=== PATIENT | male | born 1955 | race Caucasian/White ===

== ENCOUNTER 2017-09-27 09:30 | Day surgery (SDC) | payer BC ==
[~2017-09-27] VITALS: Ht 175.3 cm; Wt 84.0 kg
[~2017-09-27 09:30] MED LIST: AMIT10; Amitriptyline100 MG; CELE100 PO; CEPH500 PO; CO Q10200 MG PO; CVS GLUCOSAMIN1 EACH PO; CYAN500; CYCL10 PO; Co Q-10100 MG PO; DAILY MULTIPLE1 EACH; ESOM20 PO; EZET10 PO; FINA5; FISH OIL; FISH OIL 1,0001 EAC1 PO; GABA100; HYDACE5 PO; HYDCHL12.5; HYDR1TAB94; Hydrochloroth12.5 MG; Hydrocodone-Ap1 EA20 PO; LISI20 PO; MORP15ER; Mobic15 MG PO; Multiple Vitam1 EAC1 PO; Norco 10-325 T1 EACH PO; Norco 5-325 Ta1 EACH PO; OXYC15ER PO; OXYC5 PO; SPIHYD PO; Sm Glucosamine1 EACH PO; VITAMIN B12-FO1 EACH PO; VITAMIN D32000 UNIT; VITAMIN D32000 UNIT PO; ZIPSOR; ZOLP10 PO; Zestril40 MG
[2017-09-27] MEDS ORDERED: MORP15ER (09:55)
[2018-02-07] MEDS ORDERED: GRALISE1 EACH PO (12:13)
== END 2017-09-27 18:38 | disposition home or self-care (01) ==
LOC: ORSCSDS 09:30
PROVIDERS: Orthopaedic Surgery
PROC: 0LQ24ZZ Repair Left Shoulder Tendon, Percutaneous Endoscopic Approach (ICD-10-PCS; principal; 2017-09-27 12:00)
PROC: 01X40Z4 Transfer Ulnar Nerve to Ulnar Nerve, Open Approach (ICD-10-PCS; principal; 2017-09-27 12:00)
DX: M75.122 Complete rotator cuff tear or rupture of left shoulder, not specified as traumatic (principal); M75.52 Bursitis of left shoulder; G56.21 Lesion of ulnar nerve, right upper limb; I10 Essential (primary) hypertension; Z87.891 Personal history of nicotine dependence; Z79.899 Other long term (current) drug therapy
CPT/HCPCS: C1713; J0171; J0690; J1100; J1885; J2250; J2370; J2405; J2710; J3010

== ENCOUNTER → 2020-05-29 | Outpatient (CLI) | payer MEDICARE, BC ==
[~2020-05-29] MED LIST changes: +GRALISE1 EACH PO
[2020-05-31 17:18] LABS: CORONAVIRUS (COVID19) CSH-NRL Negative (Negative)
== END ==
LOC: LAB SHORT 15:23 → LAB 15:23
PROVIDERS: Family Medicine
DX: J40 Bronchitis, not specified as acute or chronic (principal); Z20.828 Contact with and (suspected) exposure to other viral communicable diseases
CPT/HCPCS: U0003

== ENCOUNTER 2021-08-31 12:23 | Day surgery (SDC) | payer MEDICARE, BC ==
[~2021-08-31] VITALS: Ht 175.3 cm; Wt 87.9 kg
[2021-08-31] MEDS ORDERED: METO25ER (13:14)
[2021-08-31] MEDS ORDERED: Amitriptyline H10 MG (13:16)
== END 2021-08-31 14:46 | disposition home or self-care (01) ==
LOC: ORSCSDS 12:23
PROVIDERS: Internal Medicine Gastroenterology
PROC: 0DBN8ZX Excision of Sigmoid Colon, Via Natural or Artificial Opening Endoscopic, Diagnostic (ICD-10-PCS; principal; 2021-08-31 13:45)
PROC: 0DBP8ZX Excision of Rectum, Via Natural or Artificial Opening Endoscopic, Diagnostic (ICD-10-PCS; principal; 2021-08-31 13:45)
DX: Z12.11 Encounter for screening for malignant neoplasm of colon (principal); K63.5 Polyp of colon; K63.89 Other specified diseases of intestine; K57.30 Diverticulosis of large intestine without perforation or abscess without bleeding; I10 Essential (primary) hypertension; Z86.010 Personal history of colon polyps; Z83.71 Family history of colonic polyps; Z79.899 Other long term (current) drug therapy; Z87.891 Personal history of nicotine dependence
CPT/HCPCS: 88305; J2704; J7120

== ENCOUNTER 2024-09-04 06:16 | Day surgery (SDC) | payer MEDICARE, BC ==
[~2024-09-04] VITALS: Ht 177.8 cm; Wt 73.0 kg
[2024-09-04] VITALS (12 sets, daily range): BP systolic 98–155; BP diastolic 54–78
[~2024-09-04 06:16] MED LIST changes: +ALFU10 PO; +Amitriptyline H10 MG; +CELE200 PO; +GABA300 PO; +HYDCHL25 PO; +LOSA50 PO; +METO25ER; +PRAV20 PO; +TRAM50 PO; +TRAZ50 PO; +Zofran4 MG PO
[2024-09-04] MEDS ORDERED: Verapamil HCL 2.5 MG/ML 2ML Injection ONE ×2 (06:24→07:36)
[2024-09-04] MEDS ORDERED: Heparin Sodium 1000 Units/ML 10ML MDV ONE ×4 (06:25→07:48)
[2024-09-04] MEDS ORDERED: NS 1,000 ML IV ONE ×2 (06:25→07:10)
[2024-09-04] MEDS ORDERED: Nitroglycerin 2 MG/20 ML BTL ONE ×2 (06:25→07:36)
[2024-09-04] MEDS ORDERED: NS 250 ML IV ONE (06:25)
[2024-09-04] MEDS ORDERED: OMEP20ER PO (06:51)
[2024-09-04] MEDS ORDERED: Aspirin 325 MG Tab ONE (07:09)
[2024-09-04] MEDS ORDERED: Midazolam HCl 1MG / ML 2ML Vial ONE ×2 (07:10→07:48)
[2024-09-04] MEDS ORDERED: FentaNYL Citrate 50 MCG/ML 2 ML Injection ONE ×2 (07:10→07:49)
[2024-09-04] MEDS ORDERED: NS 0 ML IV ONE ×2 (07:36)
--- NOTE | 2024-09-04 08:15 | NUR ---
PATIENT ARRIVED TO RECOVERY ROOM SITTING UPRIGHT IN RECLINER. RIGHT RADIAL TR BAND IN PLACE. SITE C/D/I SOFT/NONTENDER, NO EVIDENCE OF BLEEDING. PATIENT CONVERSING APPROPRIATELY WITH AT BEDSIDE. PATIENT DENYING ANY PAIN. VSS ON RA.
--- NOTE | 2024-09-04 08:30 | NUR ---
PATIENT AMBULATING TO RESTROOM WITHOUT DIFFIUCLTY.
--- NOTE | 2024-09-04 09:24 | NUR ---
INITIAL 2 CC OF AIR REMOVED FROM RIGHT RADIAL TR BAND. SITE C/D/I SOFT/NONTENDER, NO EVIDENCE OF BLEEDING. VSS ON RA. PATIENT TOLERATING PO INTAKE WELL.
--- NOTE | 2024-09-04 09:31 | NUR ---
NEW PRESCRIPTION CALLED
[2024-09-04] MEDS ORDERED: Aspir 8181 MG PO (09:33)
--- NOTE | 2024-09-04 09:51 | NUR ---
ALL AIR REMVOVED FROM RIGHT RADIAL TR BAND. SITE C/D/I SOFT/NONTENDER, NO EVIDENCE OF BLEEDING. VSS ON RA. DISCHARGE INSTRUCTIONS AND MEDICATION CHANGES REVIEWED WITH PATIENT AND SPOUSE AT BEDSIDE.
--- NOTE | 2024-09-04 10:35 | NUR ---
PATIENT DISCHARGED HOME AT THIS TIME. TR BAND REMOVED, CLOTH DOT AND ARMBAORD IN PLACE. DISCHARGE INSTRUCTIONS REVIEWED WITH PATIENT AND SPOUSE. PIV REMOVED WITHOUT DIFFICULTY, CATHETER INTACT. VSS ON RA. PATIENT WHEELED TO HOSPITAL ENTRANCE AND SPOUSE ABLE TO PROVIDE TRANSPORTATION HOME.
== END 2024-09-04 10:35 | disposition home or self-care (01) ==
LOC: MHTC 06:16
DX: I25.10 Atherosclerotic heart disease of native coronary artery without angina pectoris (principal); E78.5 Hyperlipidemia, unspecified; N40.0 Benign prostatic hyperplasia without lower urinary tract symptoms; I10 Essential (primary) hypertension; F17.290 Nicotine dependence, other tobacco product, uncomplicated; Z88.5 Allergy status to narcotic agent; Z88.1 Allergy status to other antibiotic agents; Z79.1 Long term (current) use of non-steroidal anti-inflammatories (NSAID); Z79.899 Other long term (current) drug therapy
CPT/HCPCS: 76937; 93458; 93571; 99152; 99153; A9270; C1769; C1887; C1894; J1644; J2250; J3010; J7030; J7050; Q9967

== ENCOUNTER 2024-10-04 08:01 | Emergency (ER) | payer MEDICARE, BC ==
[~2024-10-04] VITALS: Ht 177.8 cm; Wt 68.0 kg
[~2024-10-04 08:01] MED LIST changes: +Aspir 8181 MG PO; +OMEP20ER PO
[2024-10-04] MEDS ORDERED: Lidocaine 4% 1 Patch TOP ONE (11:05)
[2024-10-04] MEDS ORDERED: Ketorolac Tromethamine 15mg Vial IM ONE (11:05)
[2024-10-04] MEDS ORDERED: Cyclobenzaprine HCl 10 MG Tab PO ONE (11:05)
[2024-10-04] MEDS ORDERED: HYDROcodone 5-APAP 325 TAB PO ONE (14:10)
[2024-10-04 16:15] VITALS: BP 152/71
[2024-10-04] MEDS ORDERED: Diazepam 2 MG Tab PO ONE (17:15)
[2024-10-04] MEDS ORDERED: RX Prepack 6 Tabs Oxycodone 5mg UD ONE (20:20)
== END 2024-10-04 20:33 | disposition home or self-care (01) ==
LOC: ER 08:01
DX: M54.16 Radiculopathy, lumbar region (principal); I10 Essential (primary) hypertension; E78.5 Hyperlipidemia, unspecified; Z88.1 Allergy status to other antibiotic agents; Z88.5 Allergy status to narcotic agent; Z79.899 Other long term (current) drug therapy
CPT/HCPCS: 51798; 72131; 72148; 96372; 99283-25; A9270; J1885

== ENCOUNTER 2024-10-30 06:25 | Day surgery (SDC) | payer MEDICARE, BC ==
[~2024-10-30] VITALS: Ht 175.3 cm; Wt 70.8 kg
[2024-10-30] MEDS ORDERED: propofoL 50 ML IV ONE (07:37)
[2024-10-30] MEDS ORDERED: Lactated Ringer's 1,000 ML IV ONE ×2 (07:37→07:56)
[2024-10-30 09:17] VITALS: BP 142/66
== END 2024-10-30 09:20 | disposition home or self-care (01) ==
LOC: ORSCSDS 06:25
PROVIDERS: Specialist
PROC: 0DBL8ZX Excision of Transverse Colon, Via Natural or Artificial Opening Endoscopic, Diagnostic (ICD-10-PCS; principal; 2024-10-30 08:00)
PROC: 0DB78ZX Excision of Stomach, Pylorus, Via Natural or Artificial Opening Endoscopic, Diagnostic (ICD-10-PCS; principal; 2024-10-30 08:00)
PROC: 0DBP8ZX Excision of Rectum, Via Natural or Artificial Opening Endoscopic, Diagnostic (ICD-10-PCS; principal; 2024-10-30 08:00)
PROC: 0DBK8ZX Excision of Ascending Colon, Via Natural or Artificial Opening Endoscopic, Diagnostic (ICD-10-PCS; principal; 2024-10-30 08:00)
DX: R19.4 Change in bowel habit (principal); R11.2 Nausea with vomiting, unspecified; R63.4 Abnormal weight loss; K29.70 Gastritis, unspecified, without bleeding; D12.2 Benign neoplasm of ascending colon; D12.3 Benign neoplasm of transverse colon; K62.1 Rectal polyp; K64.8 Other hemorrhoids; Z79.899 Other long term (current) drug therapy; I10 Essential (primary) hypertension; E78.5 Hyperlipidemia, unspecified; F32.A Depression, unspecified
CPT/HCPCS: 88305; 88342; J2704; J7120

== ENCOUNTER 2025-03-13 04:38 | Emergency (ER) | payer MEDICARE, BC ==
[~2025-03-13] VITALS: Ht 177.8 cm; Wt 68.0 kg
[2025-03-13 05:23] VITALS: BP 158/90
[2025-03-13 05:46] LABS: Source, Urine Clean Catch
[2025-03-13 05:50] LABS: Bilirubin, Urine Neg (Neg); Color, Urine Red (P-Yellow); Glucose Qualitative, Urine Neg (Neg); Ketones, Urine Neg (Neg); Leukocyte Esterase, Urine Neg (Neg); Protein, Urine 4+ (Neg); Specific Gravity, Urine 1.010 (1.003-1.022); Urobilinogen, Urine NORM (Normal)
[2025-03-13 06:05] LABS: Red Blood Cells, Urine TNTC /hpf (0-2)
== END 2025-03-13 06:58 | disposition home or self-care (01) ==
LOC: ER 04:38
PROVIDERS: Emergency Medicine
DX: R33.9 Retention of urine, unspecified (principal); R31.9 Hematuria, unspecified; N40.0 Benign prostatic hyperplasia without lower urinary tract symptoms; I10 Essential (primary) hypertension; E78.5 Hyperlipidemia, unspecified; Z98.890 Other specified postprocedural states; Z87.891 Personal history of nicotine dependence; Z88.1 Allergy status to other antibiotic agents; Z88.5 Allergy status to narcotic agent; Z88.8 Allergy status to other drugs, medicaments and biological substances; Z79.82 Long term (current) use of aspirin; Z79.899 Other long term (current) drug therapy
CPT/HCPCS: 51702; 51798; 81001; 99283-25

== ENCOUNTER 2025-03-16 16:20 | Emergency (ER) | payer MEDICARE, BC ==
[~2025-03-16] VITALS: Ht 175.3 cm; Wt 68.0 kg
[2025-03-16] MEDS ORDERED: FentaNYL Citrate 50 MCG/ML 2 ML Injection IV ONE (17:00)
[2025-03-16] MEDS ORDERED: OXAYDO5 M1 PO (17:44)
[2025-03-16] MEDS ORDERED: ONDA4ODT MM (17:44)
[2025-03-16] MEDS ORDERED: Ketorolac Tromethamine 15mg Vial IV ONE (17:55)
[2025-03-16] MEDS ORDERED: HYDROmorphone HCl/Pf 1MG SYR IV ONE (17:55)
[2025-03-16] MEDS ORDERED: RX Prepack 6 Tabs Oxycodone 5mg UD ONE (18:00)
[2025-03-16 18:27] VITALS: BP 160/72
== END 2025-03-16 18:40 | disposition home or self-care (01) ==
LOC: ER 16:20
DX: S06.0X0A Concussion without loss of consciousness, initial encounter (principal); W22.8XXA Striking against or struck by other objects, initial encounter; Z87.891 Personal history of nicotine dependence; Z79.899 Other long term (current) drug therapy; Z79.82 Long term (current) use of aspirin; Z88.5 Allergy status to narcotic agent; Z88.1 Allergy status to other antibiotic agents
CPT/HCPCS: 70450; 72125; 93005; 93010; 96374; 96375; 99284-25; A9270; J1885; J3010